=== PATIENT | female | born 1965 ===

== ENCOUNTER 2024-08-26 06:25 | Day surgery (SDC) | payer OTHER, SELFPAY ==
[2024-08-18 13:45] VITALS: BMI 31.4
--- NOTE | 2024-08-24 07:04 | W.CON.GYNONC ---
Addendum entered and electronically signed by Pedro Cuba MD 08/26/24 13:07:
Planned surgery date of 08/26/2024
Original Note:
Chief Complaint
-
abnormal uterine bleeding, desire for risk reducing
History of Present Illness
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
tamoxifen�and�is�currently�on�Arimidex.�She�states�her�tumor�markers�have�recently�gone�up�slightly�which�is�why�they�are suggesting�having�her�ovaries�removed.�CT�scan�of�chest,�abdomen�and�pelvis�the�end�of�[place]�was�negative�for�disease.�She
states�LMP�wa�with�chemotherapy�has�had�off�an�on�spotting�since�then�which�she�has�had�EB�for�that�were�normal�last eb�was�2�years�ago�and�last�spotting�was�over�a�year�ago.�She�did�se�her�post form remover�the�end�of�[place],�pap�was�normal�and�she�is
scheduled�for�a�pelvic�u/s�next�week�in�their�office.�Her�has�a�hx�of�normal�paps�and�fibroids.�States�did�not�cause�any�problems and�denies�any�pain�from�them�now.
she�did�have�her�u/s�done�which�showed�normal�ovaries�and�uterus�but�thickened endometrial�lining�of�1.4�cm�and�primary�auto hiker�did�do�an�endometrial�biopsy�which�was�negative�for�hyperplasia�or�atypia.
�She�is doing�well�from�her�EB,�states�she�had�bleeding�for�a�week�after�but�has�now�stopped.�She�would�like�to�proceed�with�bilateral
salping�oophorectomy,�but�would�also�like�to�include�the�uterus�after�this�latest�episode.�She�would�like�to�wait�until�mid�May�for�the surgery�because�she�will�have�extra�help,�she�is�current�caring�for�her�2�young�grandchildren.
PMH: Breast ca
08/18/2016 Surgery Mastectomy�of�left�breast Left�mastectomy, axillary�dissection
09/22/2016 Chemotherapy Disease:�Breast�cancer, Regimen:�Dose�dense AC��>T,�Tx�Setting: Adjuvant 8�treatments
02/02/2017 Surgery Prophylactic�mastectomy of�right�breast Right�prophylactic mastectomy
02/26/2017 Radiation�Therapy,�Curative Loc:�Breast Left�breast
04/25/2017 Surgery Right[facility]bre[facility] [address]
Surgical�History Cholecystectomy.
Medications
Arimidex�1�mg�tablet 02/12/2024 90 1 1�p.o.�q.�day
multivitamin�oral 04/15/2019 0 1�p.o.�q.�day
Vitamin�D3�25�mcg�(1,000�unit)�capsule 02/12/2024 0 1�p.o.�q.�day
Zyrtec�10�mg�tablet 02/12/2024 0 1�p.o.�q.�day
Social�History Patient�denies�ever�using�tobacco. Denies�any�prior�alcohol�use. Denies�any�illicit�drug�use. Occupational�Status:�Current:�customer�service.
Marital�Status:�Patient�is��with�2�child/children.
Gynecological�History SAVD�x2
Family�Medical�History Sister�Breast Sister�Colon/Lukemia Brother�(2)�Lung .
Medical History
Allergies
Allergies reflect when allergies were last updated in [facility].
aprepitant [From Emend] Allergy (Verified 08/19/24 10:44)
SOB, red from face down, cough
fosaprepitant [From Emend] Allergy (Verified 08/19/24 10:44)
SOB, red from face down, cough
Sulfa (Sulfonamide Antibiotics) Allergy (Verified 08/19/24 10:44)
unk
Physical Exam
Physical Exam
General:�Well�developed,�well�nourished�patient.�In�no�acute�distress. Head:�Atraumatic�and�normocephalic. Eyes:�EOMI.�Sclerae�are�anicteric. Ears,�Nose,�Throat,�and�Mouth:�Normal�oral�mucosa�and�oropharynx.
Neck:�No�thyromegaly.�No�cervical�lymphadenopathy. Lungs:�Clear�to�auscultation.�Good�air�movement�bilaterally. Cardiac:�Regular�rate.�Regular�rhythm.�No�murmurs�appreciated. Abdomen:�Abdomen�is�soft.�Non�tender�to�palpation.�Non�distended.
Extremities:�No�edema. Hematologic/Lymphatic:�No�palpable�lymphadenopathy. Musculoskeletal:�Normal�range�of�motion.�Strength�and�Tone�are�normal. Skin:Non�jaundiced.�No�petechia.�No�purpura.
Neurologic:�Speech�is�fluent.�Normal�gait�and�station.�Cranial�nerves�intact.
Impression / Plan
-
Breast�CA���consult�for�risk�reducing�surgery patient�will�get�us�copy�of�pap�and�ultrasound discussed�with�the�patient�laparoscopic�BSO�vs�Robotic�assisted�TLh�and�BSO.�
Discussed�Hysterectomy�with�patient�because�of hx�of�fibroids�and�tamoxifen�use. She�is�interested�in�proceeding�with�surgery�and�considering�the�hysterectomy.�
reviewed�pelvic�u/s�and�endometrial�bx�with�patient,�will�proceed�with�scheduling�robotic�assisted�laparoscopic�total�hysterectomy with�BSO�for�mid�May�(08/26/24)�She�would�like�[facility]�because�it�is�less�of�a�copay�with�her�insurance.
We�discussed�the�procedure�and�post�op�recovery,� She�already�has�appointments�with�cardiology�and�her�primary�and�will�get�clearance.
reviewed�procedure�of�robotic�assisted�laparoscopic�total�hysterectomy�with�BSO,�and�risks,�all�questions�answered consent�reviewed�and�signed rto�2�weeks�after�surgery.
[2024-08-26] VITALS (13 sets, daily range): BP systolic 98–141; BP diastolic 56–90; BMI 31.4
[2024-08-26] MEDS: NEURONTIN 300 MG PO (09:58)
[2024-08-26] MEDS: MOBIC 15 MG PO (09:59)
[2024-08-26] MEDS: TYLENOL 1000 MG PO (09:59)
[2024-08-26] MEDS: HEPARIN 5000 UNITS SC (10:00)
[2024-08-26] MEDS: NORMOSOL-R/PLASMALYTE-A 1000 IV ×2 (10:17→13:19)
[2024-08-26] MEDS: DILAUDID 0.5 MG IV ×2 (12:44→13:29)
[2024-08-26] MEDS: ZOFRAN 4 MG IV (12:49)
--- NOTE | 2024-08-26 12:59 | OR.RPT ---
Operative Report
Operative Report
Date of procedure: August 26, 2024
primary Surgeon: Pedro Cuba MD
Assisting Surgeon: Edgar Liang PA-C, HETAL García
Pre-op Diagnosis: ER positive breast cancer history, desire for risk reduction and hormonal ablation
Post-op Diagnosis: Same pending final pathology
Procedure Performed: Robotic assisted total laparoscopic hysterectomy, bilateral salpingo-oophorectomy, pelvic washings
Anesthesia Type: General Endotracheal, transversus abdominis plane block
Specimen / Cultures: Uterus and cervix with bilateral tubes and ovaries, pelvic washing
Estimated Blood Loss: 50 cc
Complications: None
Operative Findings: Upper abdomen including liver stomach diaphragms right and left paracolic gutter and omentum are within normal limits. Uterus is 8 weeks size bilateral tubes and ovaries are unremarkable. There is no peritoneal implants. Some
adhesions are present in the right abdomen suggestive of prior laparotomy. Visualized portions of bowel including appendix are normal
Procedure in detail: This patient was taken to the operating room and placed in supine position, general anesthesia was administered, she was intubated without any difficulty, arms were wrapped in foam and placed along the patient's sides head and
shoulders were properly placed and padded. She was placed in lithotomy position using yellowfin stirrups, appropriate IVs were placed. The patient was prepped and draped, timeout procedure was carried out she received Ancef 2 g, and Flagyl 500 mg.
Next I placed the Braun catheter under sterile conditions to drain the bladder. Speculum was used to visualize the cervix and the anterior lip was grasped with single-tooth tenaculum. The cervical canal was dilated, uterine manipulator manager [employer]
type with 3.0 cm BRIDGETTE ring was placed over the cervix and vaginal cuff occluder was insufflated. Attention was turned abdominally, Veress needle was inserted in the left upper quadrant insufflation with CO2 gas was completed, direct entry with
trocar in this location was performed visualized afterward with camera in the upper abdomen and surveyed the entire abdomen. Under direct visualization X Xi robotic ports were placed along the midline 25 cm cephalad to symphysis pubis right upper
quadrant right lateral abdomen and left lateral abdomen. Tap block was performed injection was done under direct visualization 2 fingerbreadths below the lateral subcostal margins using combination of ropivacaine and Decadron and additional
injection was made right and left lateral abdomen. Patient was placed in deep Trendelenburg and robotic system was docked washings were collected from the pelvis and submitted for cytology. Right and left round ligaments were sealed and divided
anterior and posterior leaves of the broad ligament were dissected open the course of the ureter was visualized bilaterally and a window was created between IP ligaments and ureters. IP ligaments were sealed 3 times and divided tubes and ovaries
were left attached to the uterus. Bladder flap was sharply developed and advanced below the cervicovaginal junction. Uterine arteries were skeletonized sealed and divided remainder of the parametria and uterosacral ligaments were sealed and
divided circumferential incision was made over the BRIDGETTE ring until the specimen was completely free and it was removed through the vagina. Vaginal apex was repaired using 0 Vicryl suture ligature at both apices incorporating uterosacral ligaments
for support in a [id number] fashion. After this V-Loc suture was used to close the vaginal cuff starting from right to the left side and back to the right side. We examined all pedicles and found them all to be hemostatic. The pelvis was
irrigated copiously. Robotic system was undocked, pneumoperitoneum was released, laparoscopic ports were removed. All skin incisions were closed with 4-0 Monocryl in a subcuticular fashion. Dermabond was applied to all incisions. The vagina was
inspected and there were no lacerations. Braun catheter was removed. Patient was transferred to the PACU in a stable awake and extubated condition. Counts of laps instruments and needle was correct x 2. I was present and scrubbed for entire
procedure as dictated above
[2024-08-26] MEDS: MOTRIN 600 MG PO (16:11)
== END 2024-08-26 16:40 | disposition home or self-care (01) ==
LOC: SDS 06:25
PROVIDERS: ATTENDING PHYSICIAN Obstetrics & Gynecology Gynecologic Oncology; FAMILY PHYSICIAN Registered Nurse
DX: Z40.09 Encounter for prophylactic removal of other organ (principal); C50.412 Malignant neoplasm of upper-outer quadrant of left female breast; Z17.0 Estrogen receptor positive status [ER+]; D25.9 Leiomyoma of uterus, unspecified; N80.03 Adenomyosis of the uterus; R93.89 Abnormal findings on diagnostic imaging of other specified body structures
CPT/HCPCS: 58571; 88305; 88307; 86850; 86900; 86901; 88112; 88341; 88342